=== PATIENT | female | born 1930 | race Caucasian/White ===

== ENCOUNTER 2016-11-18 15:33 | Emergency (ER) | payer MEDICARE, BC ==
[~2016-11-18] VITALS: Ht 157.5 cm; Wt 52.0 kg
[~2016-11-18 15:33] MED LIST: CENTRUM PO; METAMUCIL28 % PO; PRESERVISION PO; PREVAGEN10 MG PO; PRILOSEC20 MG PO; SIMVASTATIN40 MG PO; ZOLPIDEM10 MG PO
[2016-11-18 16:27] LABS: URINE BILIRUBIN - DIPSTICK NEGATIVE (NEGATIVE); URINE BLOOD DIPSTICK NEGATIVE (NEGATIVE); URINE CLARITY CLEAR; URINE COLOR YELLOW; URINE GLUCOSE - DIPSTICK NEGATIVE (NEGATIVE); URINE KETONE 15 mg/dL (NEGATIVE); URINE NITRITE - DIPSTICK NEGATIVE (Negative); URINE PH 5.5 (4.5-8.0); URINE PROTEIN - DIPSTICK TRACE mg/dL (NEG-TRACE); URINE SPECIFIC GRAVITY 1.025; URINE UROBILINOGEN - DIPSTICK 0.2 E.U./dL (0.2)
[2016-11-18 16:49] LABS: URINE LEUK ESTERASE SMALL (NEGATIVE)
[2016-11-18 16:50] LABS: URINE BACTERIA MANY hpf; URINE SQUAMOUS EPITHELIAL CELL FEW EPI/hpf (0-FEW); URINE WBC 20-50 WBC/hpf (0-5)
[2016-11-18] MEDS ORDERED: CEPHALEXIN500 MG PO (17:18)
[2016-11-18 17:34] VITALS: BP 155/76
== END 2016-11-18 17:38 | disposition home or self-care (01) ==
LOC: ED 15:33
PROVIDERS: Emergency Medicine
DX: N39.0 Urinary tract infection, site not specified (principal); G30.9 Alzheimer's disease, unspecified; F02.80 Dementia in other diseases classified elsewhere, unspecified severity, without behavioral disturbance, psychotic disturbance, mood disturbance, and anxiety; B96.20 Unspecified Escherichia coli [E. coli] as the cause of diseases classified elsewhere

== ENCOUNTER 2017-12-09 15:21 | Observation (INO) | payer MEDICARE ==
[~2017-12-09] VITALS: Ht 157.5 cm; Wt 51.8 kg
[~2017-12-09 15:21] MED LIST changes: +CEPHALEXIN500 MG PO
--- NOTE | 2017-12-09 15:39 | NUR ---
PT ARRIVED TO FLOOR VIA WHEELCHAIR ACCOMPANIED BY VOLUNTEER. PT. VISIBLY UPSET. STATES SHE DOES NOT WANT TO BE HERE. PLAN OF CARE DISCUSSED. PT AGREES TO STAY UNTIL SEEING DR. SANCHEZ. IVS STARTED. IVF STARTED. ASSESSMENT COMPLETED. PT REPETITIVE. CONFUSED TO SITUATION. BED ALARM SET FOR SAFETY. UNSTEADY GAIT NOTED. DRESSING APPLIED TO SKIN TEAR TO LEFT UPPER ARM. SS IN PLACE TO SKIN TEAR ON LEFT FOREARM. CALL LIGHT REVIEWED AND IN REACH.
[2017-12-09 15:46] VITALS: BP 178/72
[2017-12-09 16:23] LABS: HEMATOCRIT 42.9 % (37.0-47.0); HEMOGLOBIN 14.5 g/dl (12.0-16.0); IMMATURE GRANULOCYTES 0.3 % (0.0-5.0); MEAN CELL VOLUME 94.1 fL CALC (80.0-100.0); MEAN CORPUSCULAR HGB 31.8 pG CALC (26.0-32.0); MEAN CORPUSCULAR HGB CONC 33.8 g/L CALC (32.0-36.0); NEUT# 4.05 thou/uL (2.00-7.15); RED BLOOD COUNT 4.56 mill/uL (4.20-5.60); RED CELL DISTRI WIDTH 13.1 % (11.5-15.5)
[2017-12-09 16:33] LABS: BUN 15 mg/dL (8-23); BUN/CREATININE RATIO 21 (12-20 (CALC)); CALCULATED LDLCHOLESTEROL 139 mg/dL (62-129 (CALC)); CARBON DIOXIDE 24 mmol/l (22-30); CHOLESTEROL HDL RATIO 3.2 (<4.4 (CALC)); CREATININE 0.7 mg/dL (0.5-1.0); ETHYL ALCOHOL 0 mg/dl (0-30); GFR > 60 ML/MIN (>=60 (CALC)); GFR FOR AFR.AMER. > 60 ML/MIN (>=60 (CALC)); HDL CHOLESTEROL 80 mg/dL (>=40); SODIUM 143 mmol/l (137-146); TOTAL CHOLESTEROL 256 mg/dl (0-199); TOTAL TRIGLYCERIDES 182 mg/dl (30-149); VLDL CHOLESTROL 36 mg/dl (0-48 (CALC))
[2017-12-09 16:34] LABS: ANION GAP 15 (6-22 (CALC)); CHLORIDE 108 mmol/l (95-108)
[2017-12-09] MEDS ORDERED: ZOLOFT50 MG PO (18:22)
[2017-12-09] MEDS ORDERED: LORAZEPAM0.5 MG PO (18:22)
--- NOTE | 2017-12-09 18:22 | NUR ---
DR. SANCHEZ IN TO SEE PT. PT ADAMANT ABOUT GOING HOME TONIGHT. DISCHARGE ORDER PLACED BY DR. SANCHEZ. DAUGHTER AT BEDSIDE AND WILL TAKE PT HOME.
--- NOTE | 2017-12-09 18:43 | NUR ---
Discharge instructions given. Patient verbalizes understanding of same. Discharged in stable condition via Wheelchair to Home with family. All belongings sent with pt.
== END 2017-12-09 18:43 | disposition home or self-care (01) ==
LOC: MS2 15:21
PROVIDERS: ADMIT Internal Medicine Geriatric Medicine; ATTEND Internal Medicine Geriatric Medicine
DX: R42 Dizziness and giddiness (principal); R26.81 Unsteadiness on feet; I10 Essential (primary) hypertension; I25.10 Atherosclerotic heart disease of native coronary artery without angina pectoris; E78.5 Hyperlipidemia, unspecified; F03.90 Unspecified dementia, unspecified severity, without behavioral disturbance, psychotic disturbance, mood disturbance, and anxiety; M19.90 Unspecified osteoarthritis, unspecified site; F41.9 Anxiety disorder, unspecified; E03.9 Hypothyroidism, unspecified; S51.812A Laceration without foreign body of left forearm, initial encounter; W19.XXXA Unspecified fall, initial encounter; Z91.81 History of falling; Z60.2 Problems related to living alone
CPT/HCPCS: Q9967

== ENCOUNTER → 2018-05-19 | Outpatient (REF) | payer MEDICARE ==
[~2018-05-19] MED LIST changes: +LORAZEPAM0.5 MG PO; +ZOLOFT50 MG PO
[2018-05-19 16:30] LABS: HEMATOCRIT 42.6 % (37.0-47.0); IMMATURE GRANULOCYTES 0.1 % (0.0-5.0); MEAN CELL VOLUME 95.5 fL CALC (80.0-100.0); MEAN CORPUSCULAR HGB 31.4 pG CALC (26.0-32.0); MEAN CORPUSCULAR HGB CONC 32.9 g/L CALC (32.0-36.0); NEUT# 4.54 thou/uL (2.00-7.15); RED BLOOD COUNT 4.46 mill/uL (4.20-5.60); RED CELL DISTRI WIDTH 12.7 % (11.5-15.5)
[2018-05-19 16:56] LABS: ALBUMIN 4.3 g/dL (3.2-5.0); ALKALINE PHOSPHATASE 62 u/l (38-126); ANION GAP 13 (6-22 (CALC)); BILIRUBIN, TOTAL 0.6 mg/dL (0.0-1.4); BUN 14 mg/dL (8-23); BUN/CREATININE RATIO 19 (12-20 (CALC)); CALCULATED LDLCHOLESTEROL 109 mg/dL (62-129 (CALC)); CARBON DIOXIDE 30 mmol/l (22-30); CHLORIDE 102 mmol/l (95-108); CREATININE 0.7 mg/dL (0.5-1.0); GFR > 60 ML/MIN (>=60 (CALC)); GFR FOR AFR.AMER. > 60 ML/MIN (>=60 (CALC)); HDL CHOLESTEROL 80 mg/dL (>=40); POTASSIUM 4.1 mmol/l (3.5-5.1); SGOT/AST 19 u/l (9-36); SODIUM 141 mmol/l (137-146); TOTAL CHOLESTEROL 239 mg/dl (0-199); TOTAL PROTEIN 7.2 g/dL (6.3-8.2); TOTAL TRIGLYCERIDES 249 mg/dl (30-149); VLDL CHOLESTROL 50 mg/dl (0-48 (CALC))
== END | disposition home or self-care (01) ==
LOC: LAB 15:26
PROVIDERS: ATTEND Nurse Practitioner Family
DX: M25.562 Pain in left knee (principal); W19.XXXA Unspecified fall, initial encounter; M17.12 Unilateral primary osteoarthritis, left knee; I10 Essential (primary) hypertension; E78.2 Mixed hyperlipidemia

== ENCOUNTER → 2018-06-04 | Outpatient (REF) | payer MEDICARE ==
[2018-06-04 14:04] LABS: HEMATOCRIT 43.4 % (37.0-47.0); HEMOGLOBIN 14.1 g/dl (12.0-16.0); IMMATURE GRANULOCYTES 0.3 % (0.0-5.0); MEAN CELL VOLUME 94.6 fL CALC (80.0-100.0); MEAN CORPUSCULAR HGB 30.7 pG CALC (26.0-32.0); MEAN CORPUSCULAR HGB CONC 32.5 g/L CALC (32.0-36.0); NEUT# 3.76 thou/uL (2.00-7.15); RED BLOOD COUNT 4.59 mill/uL (4.20-5.60); RED CELL DISTRI WIDTH 13.2 % (11.5-15.5)
[2018-06-04 14:23] LABS: ALBUMIN 4.4 g/dL (3.2-5.0); ALKALINE PHOSPHATASE 71 u/l (38-126); ANION GAP 12 (6-22 (CALC)); BILIRUBIN, TOTAL 0.8 mg/dL (0.0-1.4); BUN 12 mg/dL (8-23); BUN/CREATININE RATIO 17 (12-20 (CALC)); CALCULATED LDLCHOLESTEROL 94 mg/dL (62-129 (CALC)); CARBON DIOXIDE 31 mmol/l (22-30); CHLORIDE 103 mmol/l (95-108); CHOLESTEROL HDL RATIO 2.6 (<4.4 (CALC)); CREATININE 0.7 mg/dL (0.5-1.0); GFR > 60 ML/MIN (>=60 (CALC)); GFR FOR AFR.AMER. > 60 ML/MIN (>=60 (CALC)); HDL CHOLESTEROL 81 mg/dL (>=40); POTASSIUM 4.5 mmol/l (3.5-5.1); SGOT/AST 19 u/l (9-36); SODIUM 142 mmol/l (137-146); TOTAL CHOLESTEROL 213 mg/dl (0-199); TOTAL PROTEIN 7.3 g/dL (6.3-8.2); TOTAL TRIGLYCERIDES 192 mg/dl (30-149); VLDL CHOLESTROL 38 mg/dl (0-48 (CALC))
== END | disposition home or self-care (01) ==
LOC: LAB 13:30
PROVIDERS: Internal Medicine Geriatric Medicine; ATTEND Nurse Practitioner Family
DX: I10 Essential (primary) hypertension (principal); E78.2 Mixed hyperlipidemia

== ENCOUNTER 2018-10-13 11:55 | Observation (INO) | payer MEDICARE ==
[~2018-10-13] VITALS: Ht 157.5 cm; Wt 52.2 kg
[2018-10-13 12:11] VITALS: BP 156/95
[2018-10-13 13:49] LABS: ANION GAP 13 (6-22 (CALC)); BUN 12 mg/dL (8-23); BUN/CREATININE RATIO 17 (12-20 (CALC)); CARBON DIOXIDE 27 mmol/l (22-30); CHLORIDE 108 mmol/l (95-108); CREATININE 0.7 mg/dL (0.5-1.0); GFR > 60 ML/MIN (>=60 (CALC)); GFR FOR AFR.AMER. > 60 ML/MIN (>=60 (CALC)); POTASSIUM 3.9 mmol/l (3.5-5.1); SODIUM 144 mmol/l (137-146)
[2018-10-13 17:31] VITALS: BP 164/97
[2018-10-13 18:20] LABS: HEMATOCRIT 46.5 % (37.0-47.0); HEMOGLOBIN 15.4 g/dl (12.0-16.0); IMMATURE GRANULOCYTES 0.2 % (0.0-5.0); MEAN CELL VOLUME 94.9 fL CALC (80.0-100.0); MEAN CORPUSCULAR HGB 31.4 pG CALC (26.0-32.0); MEAN CORPUSCULAR HGB CONC 33.1 g/L CALC (32.0-36.0); NEUT# 3.83 thou/uL (2.00-7.15); RED BLOOD COUNT 4.9 mill/uL (4.20-5.60); RED CELL DISTRI WIDTH 13.7 % (11.5-15.5)
[2018-10-13 18:35] LABS: CHOLESTEROL HDL RATIO 2.6 (<4.4 (CALC))
[2018-10-13 19:46] VITALS: BP 124/69
[2018-10-13 20:36] LABS: URINE BILIRUBIN - DIPSTICK NEGATIVE (NEGATIVE); URINE BLOOD DIPSTICK NEGATIVE (NEGATIVE); URINE COLOR YELLOW; URINE GLUCOSE - DIPSTICK NEGATIVE (NEGATIVE); URINE KETONE NEGATIVE (NEGATIVE); URINE LEUK ESTERASE NEGATIVE (NEGATIVE); URINE NITRITE - DIPSTICK NEGATIVE (Negative); URINE PROTEIN - DIPSTICK NEGATIVE (NEG-TRACE); URINE UROBILINOGEN - DIPSTICK 0.2 E.U./dL (0.2)
[2018-10-14] VITALS: BP 159/91
[2018-10-14 04:08] VITALS: BP 158/90
[2018-10-14 04:17] VITALS: BP 123/54
[2018-10-14 05:28] LABS: HEMATOCRIT 42.9 % (37.0-47.0); HEMOGLOBIN 14.1 g/dl (12.0-16.0); IMMATURE GRANULOCYTES 0.5 % (0.0-5.0); MEAN CELL VOLUME 96.4 fL CALC (80.0-100.0); MEAN CORPUSCULAR HGB 31.7 pG CALC (26.0-32.0); MEAN CORPUSCULAR HGB CONC 32.9 g/L CALC (32.0-36.0); NEUT# 3.73 thou/uL (2.00-7.15); RED BLOOD COUNT 4.45 mill/uL (4.20-5.60); RED CELL DISTRI WIDTH 13.7 % (11.5-15.5)
[2018-10-14 05:58] LABS: ALBUMIN 3.6 g/dL (3.2-5.0); ALKALINE PHOSPHATASE 54 u/l (38-126); ANION GAP 12 (6-22 (CALC)); BILIRUBIN, TOTAL 0.8 mg/dL (0.0-1.4); BUN 13 mg/dL (8-23); BUN/CREATININE RATIO 24 (12-20 (CALC)); CARBON DIOXIDE 24 mmol/l (22-30); CHLORIDE 110 mmol/l (95-108); CREATININE 0.6 mg/dL (0.5-1.0); GFR > 60 ML/MIN (>=60 (CALC)); GFR FOR AFR.AMER. > 60 ML/MIN (>=60 (CALC)); POTASSIUM 3.8 mmol/l (3.5-5.1); SGOT/AST 21 u/l (9-36); SODIUM 141 mmol/l (137-146); TOTAL PROTEIN 6.1 g/dL (6.3-8.2)
[2018-10-14 07:51] VITALS: BP 153/79
[2018-10-14 11:33] VITALS: BP 149/77
[2018-10-14 15:23] VITALS: BP 151/78
== END 2018-10-14 18:05 | disposition home health service (06) ==
LOC: MS2 11:55
PROVIDERS: ADMIT Internal Medicine Geriatric Medicine; ATTEND Internal Medicine Geriatric Medicine
DX: R07.89 Other chest pain (principal); F10.10 Alcohol abuse, uncomplicated; I10 Essential (primary) hypertension; I25.10 Atherosclerotic heart disease of native coronary artery without angina pectoris; E78.5 Hyperlipidemia, unspecified; K27.9 Peptic ulcer, site unspecified, unspecified as acute or chronic, without hemorrhage or perforation; K21.9 Gastro-esophageal reflux disease without esophagitis; F41.1 Generalized anxiety disorder; M81.0 Age-related osteoporosis without current pathological fracture; F03.90 Unspecified dementia, unspecified severity, without behavioral disturbance, psychotic disturbance, mood disturbance, and anxiety; M19.90 Unspecified osteoarthritis, unspecified site; E03.9 Hypothyroidism, unspecified; Z60.2 Problems related to living alone
CPT/HCPCS: J2060

== ENCOUNTER 2018-10-15 00:05 | Emergency (ER) | payer MEDICARE ==
[~2018-10-15] VITALS: Ht 157.5 cm; Wt 59.1 kg
[2018-10-15 01:45] VITALS: BP 176/81
== END 2018-10-15 01:45 | disposition home or self-care (01) ==
LOC: ED 00:05
PROC: 0HQDXZZ Repair Right Lower Arm Skin, External Approach (ICD-10-PCS; principal; 2018-10-15)
DX: S00.03XA Contusion of scalp, initial encounter (principal); S51.811A Laceration without foreign body of right forearm, initial encounter; I10 Essential (primary) hypertension; F17.210 Nicotine dependence, cigarettes, uncomplicated; W17.89XA Other fall from one level to another, initial encounter; Y93.89 Activity, other specified; Y92.009 Unspecified place in unspecified non-institutional (private) residence as the place of occurrence of the external cause